=== PATIENT | female | born 1970 | race Caucasian/White ===

== ENCOUNTER 2019-11-21 08:35 | Day surgery (SDC) | payer BC ==
[~2019-11-21] VITALS: Ht 165.1 cm; Wt 93.4 kg
[~2019-11-21 08:35] MED LIST: CEFAZOLIN 1 GM IVPB PREMIX 50 ML IV ONE
[2019-11-21] MEDS ORDERED: BUPIVACAINE /PF 0.25% 30 ML VIAL INJ ONE (13:53)
[2019-11-21] MEDS ORDERED: LR 1,000 ML IV.SOLN IV ONE (13:53)
[2019-11-21] MEDS ORDERED: ROCURONIUM BROMIDE 10 MG/ML (ZEMURON) IV ONE (13:53)
[2019-11-21] MEDS ORDERED: SUCCINYLCHOLINE CHLORIDE 20 MG/ML(QUELICIN) IVP ONE (13:53)
[2019-11-21] MEDS ORDERED: SEVOFLURANE 15 MIN GAS INH ONE (13:53)
[2019-11-21] MEDS ORDERED: PROPOFOL 200MG/ 20ML VIAL (DIPRIVAN) IV ONE (13:53)
[2019-11-21] MEDS ORDERED: METOCLOPRAMIDE HCL 10 MG/2 ML VIAL IVP ONE (13:53)
[2019-11-21] MEDS ORDERED: NS IRRIG SOLN 1000 ML IR ONE (13:53)
[2019-11-21] MEDS ORDERED: ISOSULFAN BLUE 5 ML VIAL (LYMPHAZURIN) INJ ONE (13:53)
[2019-11-21] MEDS ORDERED: ONDANSETRON HCL 4 MG/2 ML VIAL IVP ONE (13:53)
[2019-11-21] MEDS ORDERED: D5/0.45 NS 1,000 ML IV SCH (15:10)
[2019-11-21] MEDS ORDERED: HYDROmorphone 1 MG INJ. 1 MG/ML AMPUL IVP PRN (15:15)
[2019-11-21] MEDS ORDERED: HYDROcodone/ACETAMIN 5-325 MG TAB (NORCO/ VICODIN) PO PRN ×2 (15:15)
[2019-11-21] MEDS ORDERED: HYDROmorphone 1 MG INJ. 1 MG/ML AMPUL ONE (15:41)
[2019-11-21] MEDS ORDERED: KETOROLAC TROMETHAMINE 30 MG VIAL ONE (16:15)
[2019-11-21 16:34] VITALS: BP_SYST 110
== END 2019-11-21 17:45 | disposition home or self-care (01) ==
LOC: SDS 08:35 → EDSTATUS 10:50 → SDS 17:45
PROVIDERS: ATTEND Colon & Rectal Surgery
DX: D05.12 Intraductal carcinoma in situ of left breast (principal); F32.9 Major depressive disorder, single episode, unspecified; Z91.048 Other nonmedicinal substance allergy status; Z85.41 Personal history of malignant neoplasm of cervix uteri; Z82.49 Family history of ischemic heart disease and other diseases of the circulatory system
CPT/HCPCS: 19281; 19301; 38525; 78195; 88307; 88333; 88342; 88361; A9541; J0330; J0690; J1170; J1885; J2405; J2704; J2765; J3490; J7120; Q9968; 88309

== ENCOUNTER 2020-01-02 07:05 | Day surgery (SDC) | payer BC, SELFPAY ==
[~2020-01-02] VITALS: Ht 165.1 cm; Wt 93.4 kg
[2020-01-02 07:38] LABS: HCG,QUAL RESULT NEGATIVE (NEGATIVE)
[2020-01-02] MEDS ORDERED: fentaNYL CITRATE/PF 100 MCG/2 ML AMP IVP ONE (09:08)
[2020-01-02] MEDS ORDERED: PROPOFOL 200MG/ 20ML VIAL (DIPRIVAN) IV ONE (09:08)
[2020-01-02] MEDS ORDERED: ONDANSETRON HCL 4 MG/2 ML VIAL IVP ONE (09:08)
[2020-01-02] MEDS ORDERED: MIDAZOLAM HCL 5 MG/5 ML VIAL IVP ONE (09:08)
[2020-01-02] MEDS ORDERED: SEVOFLURANE 15 MIN GAS INH ONE (09:08)
[2020-01-02] MEDS ORDERED: LR 1,000 ML IV.SOLN IV ONE (09:08)
[2020-01-02] MEDS ORDERED: NS IRRIG SOLN 1000 ML IR ONE (09:08)
[2020-01-02] MEDS ORDERED: DEXAMETHASONE SOD PHOSPHATE 4 MG/ML VIAL IVP ONE (09:08)
[2020-01-02] MEDS ORDERED: MEPERIDINE HCL/PF 25 MG/ML DISP.SYRIN IVP PRN (09:45)
[2020-01-02] MEDS ORDERED: HYDROmorphone 1 MG INJ. 1 MG/ML AMPUL IVP PRN ×2 (09:45)
[2020-01-02] MEDS ORDERED: MORPHINE 2 MG/ML INJ. SYRINGE IVP PRN (09:45)
[2020-01-02] MEDS ORDERED: LR 1,000 ML IV SCH (09:45)
[2020-01-02] MEDS ORDERED: ONDANSETRON HCL 4 MG/2 ML VIAL IVP PRN (09:45)
[2020-01-02] MEDS ORDERED: MIDAZOLAM HCL 2 MG/2 ML VIAL (VERSED) IVP PRN (09:45)
[2020-01-02] MEDS ORDERED: METOCLOPRAMIDE HCL 10 MG/2 ML VIAL IVP PRN (09:45)
[2020-01-02] MEDS ORDERED: D5/0.45 NS 1,000 ML IV SCH (10:14)
[2020-01-02] MEDS ORDERED: HYDROcodone/ACETAMIN 5-325 MG TAB (NORCO/ VICODIN) PO PRN ×2 (10:15)
[2020-01-02] MEDS ORDERED: HYDROmorphone 2 MG/ML VIAL IVP PRN ×3 (10:15→10:35)
[2020-01-02] MEDS ORDERED: HYDROmorphone 1 MG INJ. 1 MG/ML AMPUL ONE (11:22)
[2020-01-02] MEDS ORDERED: HYDROcodone/ACETAMIN 5-325 MG TAB (NORCO/ VICODIN) ONE (11:54)
[2020-01-02 13:47] VITALS: BP_SYST 97
== END 2020-01-02 13:30 | disposition home or self-care (01) ==
LOC: SMU 07:05 → SDS 07:05
PROVIDERS: ATTEND Colon & Rectal Surgery
DX: C50.912 Malignant neoplasm of unspecified site of left female breast (principal); Z11.59 Encounter for screening for other viral diseases; F32.9 Major depressive disorder, single episode, unspecified; Z79.899 Other long term (current) drug therapy
CPT/HCPCS: 19301; 84703; 88307; C9803; J0690; J1100; J1170; J2250; J2405; J2704; J3010; J7120; U0003